=== PATIENT | female | born 1955 | race Caucasian/White ===

== ENCOUNTER 2018-02-27 10:02 | Emergency (ER) | payer MEDICAID ==
[~2018-02-27] VITALS: Ht 160 cm; Wt 77.0 kg
[2018-02-27 11:40] VITALS: BP 158/68
== END 2018-02-27 11:51 | disposition left against medical advice (07) ==
LOC: ER 10:19
DX: T14.90XA Injury, unspecified, initial encounter (principal); V49.49XA Driver injured in collision with other motor vehicles in traffic accident, initial encounter; Y93.89 Activity, other specified; Y92.89 Other specified places as the place of occurrence of the external cause; Y99.8 Other external cause status
CPT/HCPCS: 99283